=== PATIENT | male | born 1985 | race Hispanic/Latino ===

== ENCOUNTER 2021-01-13 12:33 | Emergency (ER) | payer OTHER ==
[~2021-01-13] VITALS: Ht 172.7 cm; Wt 81.6 kg
[2021-01-13 12:35] VITALS: BP 138/72
[2021-01-13] MEDS ORDERED: IBUPROFEN 600 MG TABLET PO ONE (14:30)
[2021-01-13] MEDS ORDERED: ACETAMINOPHEN 500 MG TABLET PO ONE (14:30)
[2021-01-13] MEDS ORDERED: ACET-3194 PO (15:28)
[2021-01-13] MEDS ORDERED: ALBU8.5H8 IH (15:28)
[2021-01-13] MEDS ORDERED: IBUP-2070 PO (15:28)
[2021-01-13] MEDS ORDERED: AZIT250T9 PO (15:28)
[2021-01-13] MEDS ORDERED: GUAI10LI12 PO (15:28)
== END 2021-01-13 15:36 | disposition home or self-care (01) ==
LOC: EDH 12:33
DX: U07.1 COVID-19 (principal); E11.9 Type 2 diabetes mellitus without complications; Z79.1 Long term (current) use of non-steroidal anti-inflammatories (NSAID); Z79.899 Other long term (current) drug therapy; Z90.49 Acquired absence of other specified parts of digestive tract
CPT/HCPCS: 71045; 87635; 87804 ×2; 99284; C9803